=== PATIENT | male | born 1960 | race Caucasian/White ===

== ENCOUNTER 2023-03-16 20:55 | Emergency (ER) | payer OTHER, SELFPAY ==
[2023-03-16 20:56] VITALS: BP 104/70; PULSE 57; RESP 18; TEMP 36.5; O2SAT 97; BMI 33.9
--- NOTE | 2023-03-16 21:12 | CT_ITS ---
INDICATION: trauma EXAMINATION: CT CERVICAL SPINE - CT Spine Cervical W/O Contrast Injection TECHNIQUE: Helically acquired images were obtained of the cervical spine. 2D reformatted images were reviewed. A radiation dose optimization technique was used for this scan. IV Contrast dosage and agent: None. RADIATION DOSAGE (If Supplied By Facility): CTDIvol = ( 25.22 ) mGy, DLP = ( 518.06 ) mGycm COMPARISON: None. FINDINGS: ALIGNMENT: No subluxation. MINERALIZATION: Normal. VERTEBRAL BODIES: No fracture or acute abnormality. DISC SPACES: Disc space narrowing with osteophytes C5-C7. POSTERIOR ELEMENTS: Facet arthropathy at multiple levels. SPINAL CANAL: Maintained. PARASPINAL SOFT TISSUES: Unremarkable. OTHER: Fracture right posterior second rib. Hazy opacity in the right upper lung. CT/Spine Cervical without Contras IMPRESSION: No evidence of fracture or subluxation in cervical spine. Right posterior second rib fracture. Right upper lobe contusion versus atelectasis. CT chest was obtained and will be reported separately. Electronically Signed: Lindsey Snowden MD at 22:28 EDT ,
--- NOTE | 2023-03-16 21:12 | CT_ITS ---
INDICATION: trauma EXAMINATION: CT THORACIC SPINE - CT Spine Thoracic W/O Contrast Injection TECHNIQUE: Helically acquired images were obtained of the thoracic spine. 2D reformats were reviewed. A radiation dose optimization technique was used for this scan. IV Contrast dosage and agent: None. RADIATION DOSAGE (If Supplied By Facility): CTDIvol = ( 23.11 ) mGy, DLP = ( 960.32 ) mGycm COMPARISON: FINDINGS: ALIGNMENT: No subluxation. Mild curvature mid thoracic spine convex right. MINERALIZATION: Normal. VERTEBRAL BODIES: No fracture or acute abnormality. DISC SPACES: Unremarkable. POSTERIOR ELEMENTS: Unremarkable. SPINAL CANAL: Maintained. PARASPINAL SOFT TISSUES: Unremarkable. OTHER: Fracture posterior right second rib nondisplaced. Dependent opacities in the lungs likely atelectasis.. CT/Spine Thoracic without Contras IMPRESSION: No evidence of fracture or subluxation in the thoracic spine. Right posterior second rib fracture nondisplaced. CT chest reported separately. Electronically Signed: Lindsey Snowden MD at 22:32 EDT ,
--- NOTE | 2023-03-16 21:12 | CT_ITS ---
INDICATION: 10 feet fall from ladder EXAMINATION: CT BRAIN - CT Head or Brain W/O Contrast Injection TECHNIQUE: Multiple axial images were obtained of the head without intravenous contrast. A radiation dose optimization technique was used for this scan. IV Contrast dosage and agent: None. RADIATION DOSAGE (If Supplied By Facility): CTDIvol = ( 44.99 ) mGy, DLP = ( 846.73 ) mGycm COMPARISON: None. FINDINGS: BRAIN: No acute bleed. No edema. Allan-white matter differentiation is maintained. VENTRICLES AND SULCI: Not dilated. EXTRA-AXIAL: No hemorrhage, fluid collection, or mass. CALVARIUM / SKULL BASE: Unremarkable. FACE/SINUSES: Unremarkable. SOFT TISSUES: Unremarkable. CT/Brain/Head without Contrast IMPRESSION: No acute abnormality. Electronically Signed: Lindsey Snowden MD at 22:20 EDT ,
--- NOTE | 2023-03-16 21:12 | CT_ITS ---
INDICATION: trauma EXAMINATION: CT CHEST WITH CONTRAST - CT Chest W/ Contrast Injection TECHNIQUE: Helically acquired images were obtained of the chest following IV contrast. A radiation dose optimization technique was used for this scan. IV Contrast: IV 100mL [id number]-370 . RADIATION DOSAGE (If Supplied By Facility): CTDIvol = ( 18.86 ) mGy, DLP = ( 751.61 ) mGycm COMPARISON: FINDINGS: LUNGS: Small area of consolidation in the anterior right upper lobe, deep to the anterior first rib at sternal margin. Dependent atelectasis in both lungs. PLEURA: Tiny pneumothorax on the right, tiny focus of air anterior and another focus anterior/medial adjacent to the heart. Less likely tiny component of pneumomediastinum. No pleural effusion. MEDIASTINUM: Unremarkable. HEART: Not enlarged. AORTA: Normal caliber. No dissection. Margins are distinct. UPPER ABDOMEN: No acute abnormalities. BONES/SOFT TISSUES: Fracture of the right anterior first rib costal margin, without significant displacement. Overlying stranding parasternal. Fracture posterior right second rib nondisplaced.. OTHER: None. CT/Chest WITH Contrast IMPRESSION: 1. Acute nondisplaced right anterior first rib fracture at the costal margin. Right posterior second rib fracture. 2. Tiny right pneumothorax. Questionable tiny pneumomediastinum. 3. Right upper lobe pulmonary contusion. 4. No evidence of traumatic aortic injury.. Electronically Signed: Lindsey Snowden MD at 22:46 EDT ,
--- NOTE | 2023-03-16 21:18 | EDS_ITS ---
HPI HPI - Fall History of Present Illness Chief Complaint: Fall Detail of Chief Complaint: 10 feet fall from a ladder to the ground. Informant: patient and spouse/S.O. Occured/Mechanism Occurred: Today and Hours Usually ambulates: Without assistance Pain/Injury Pain Location: back and upper extremity Quality of Pain: Sharp and Stabbing Current Severity: Moderate Maximum Severity: Severe Associated Symptoms Associated Symptoms: Negative for Parasthesias, Weakness, Loss of function, Loss of consciousness or Amnesia Narrative Narrative: 62-year-old male no significant past medical or surgical history. He is on a ladder about 10 feet in the air trying to get rid of Squared[employer] nest. As he was trending down from the ladder he fell to the ground landing flat on his back complaining of pain to his right parathoracic back and right shoulder. No LOC. He did not hit his head. Denies any neck pain. No weakness or numbness to his extremities. Prior similar symptoms: No Recent Illness/Hospitalization: No PFSH PFSH Medical History no medical history no medical history Allergy/AdvReac Type Severity Reaction Status Date / Time No Known Allergies Allergy Verified 03/16/23 20:56 Surgical History Hx of adenoidectomy Hx of tonsillectomy Social History Smoking Status: Never smoker ROS ROS ED ROS Narrative Denies recent illness. Review of Systems ROS Unobtainable: Denies due to encephalopathy Constitutional Constitutional ED: Denies chills or fever(s) Eyes Eyes: Denies blurry vision ENT ENT ED: Denies ear pain or rhinorrhea Cardiovascular Cardiovascular: Denies chest pain or palpitations Respiratory/Chest Respiratory/Chest: Denies cough or dyspnea Gastrointestinal Gastrointestinal: Denies abdominal pain, constipation, diarrhea, melena, nausea or vomiting Genitourinary Genitourinary ED: Denies dysuria or hematuria Musculoskeletal Musculoskeletal: Reports back pain; Denies arthralgias, myalgias or neck pain Integumentary Denies abscess or Abrasions Neurologic Neurologic: Denies headache(s) Psychiatric Psychiatric: Denies anxiety Endocrine Endocrinology: Denies polydipsia or polyphagia Hematologic/Lymphatic Hematologic/Lymphatic: Denies easy bleeding, easy bruising or lymphadenopathy EXAM Physical Exam Narrative Exam Narrative: 62-year-old male on a backboard. No c-collar. Vital signs are stable and afebrile. He is awake alert. He is answering questions following commands. Family is present in the room. H EENT exam pupils round reactive light. No trauma to his face or tenderness. No trauma to his scalp head. No hematomas. C-spine nontender. Trachea midline. Lungs clear to auscultation bilaterally. Heart regular rhythm rate about 60 no murmur. Chest wall and ribs nontender. Abdomen soft nontender. No bruising. Pelvic girdle intact. Moving all 4 ex tremities. Neurovascular intact. Equal symmetrical 5 and 5 hand cigar maker strength. Dorsi plantarflexion intact. He is able to flex and extend both hips and knees. Normal range of motion of his left upper extremity. He has limited range of motion of his right shoulder due to pain. No gross bony deformity. Neurologically he is awake and alert. Answering questions following commands. GCS of 15. Const Vital Signs: 03/16/23 20:56 03/16/23 21:01 03/16/23 23:00 Temperature 97.7 F L Temperature Source Oral Pulse Rate 57 L 70 Respiratory Rate 18 16 Respiratory Effort Normal Non-Labored Respiratory Depth Normal Respiratory Pattern Normal Blood Pressure 104/70 136/70 H Blood Pressure Mean 81 92 Pulse Ox 97 99 Oxygen Delivery Method Room Air Room Air Room Air Positive well nourished and well developed; Negative for obese, cachectic, contractures or unkempt General Appearance ED: well developed; Negative for unkempt, cachectic, contractures or NAD Nutritional Appearance: Negative for cachectic or obese HEENT Reports normocephalic atraumatic; Negative for trauma, contusion, hematoma or tenderness Eyes PERRL and EOMs intact bilaterally General Eye ED: Negative for pale conjunctiva, scleral icterus or other Neck full ROM, no lymphadenopathy and supple General: Negative for tenderness Chest Wall inspection of chest normal and palpation of chest normal Chest: Negative for other Resp normal respiratory effort, no retractions and clear to auscultation bilaterally Effort and Inspection: Negative for pain with movement Auscultation: Negative for rales, rhonchi, wheezes or diminished lung sounds Cardio regular rate, regular rhythm, S1 normal heart sound, S2 normal heart sound and no murmurs Rate: Negative for bradycardia or tachycardic Rhythm: Negative for abnormal rhythm Bruits: Negative for other GI non-tender, non-distended and no masses Inspection: Negative for abdominal distention Auscultation: normoactive bowel sounds Palpation: soft; Negative for guarding or rebound tenderness present Back/Spine no CVA tenderness Back/Spine Narrative: Tenderness to the paraspinal muscles in the posterior ribs along the thoracic spine. No bruising. No ecchymosis. Also tenderness to the right shoulder and posterior shoulder blade area. No crepitance or subcu air. Large cervical spine actively nontender. General Back: Negative for CVA tenderness Cervical Spine: cervical spine tenderness Lumbar Spine / Lower Back: Negative for lumbar spinal tenderness Neuro oriented x3, CN's II-XII intact bilaterally, moves all extremities, no focal motor deficits and no sensory deficits noted Sensorium / Orientation: alert, oriented to person, oriented to place and oriented to time; Negative for orientation impaired, confused, lethargic or stuporous Motor Exam: strength 5/5 throughout; Negative for general weakness or strength abnormal Psych mental status grossly normal and thought process normal Appearance: Negative for unkempt Attitude: No agitated Mood & Affect: Negative for depressed, anxious or tearful Skin Lesions: no lesions Rashes: no rashes Trauma: Negative for abrasion MDM MDM MDM Narrative Medical decision making narrative: 62-year-old male fell about 10 feet from a ladder to the ground. No LOC. No neck pain. He is significant pain to his perithoracic soft tissue and posterior ribs to his thoracic spine. He of his head, C-spine chest and thoracic spine to be obtained. He is already been treated with fentanyl by the squad prior to arrival he did not waiting currently for pain. He has absolutely no abdominal trauma or pain. No anterior chest wall trauma or pain. I am also x-raying his right shoulder due to discomfort in the right shoulder blade and shoulder itself. There is no deformity. Patient is doing well at 10:02 PM. I went over his x-ray with him I think he has an AC joint separation. He is tender right over that point of his anterior shoulder. I have reviewed his CAT scans of his brain, C-spine, T-spine and chest. I am awaiting formal radiology interpretation. He will be treated with Dilaudid for his current pain. Zofran to prevent nausea. CAT scan is read by the radiologist and reviewed by me show first and second rib fractures posteriorly, small right pneumothorax, and a pulmonary contusion on the right. X-ray showed a right AC separation. CT of the brain and C-spine were unremarkable. CT of the thoracic spine was unremarkable. Patient is doing well at 11:10 PM. I discussed at length with both he and his family. He has received pain medication. I have already spoken [facility] though accept him in transfer. We are setting up transfer by ground ambulance. Currently he is awake and comfortable. His exam is benign change. His abdomen is totally benign. He is in no distress at this time. History & Record Review Discussion w/independent historian: Patient and Family Radiography Diagnostic Testing: Clinical Impression(s) from Imaging Studies Brain CT 03/16/23 21:12 IMPRESSION: No acute abnormality. Electronically Signed: Lindsey Snowden MD at 22:20 EDT Reading Location ID and State: [employer] / [place] Tel , Service support , Cervical Spine CT 03/16/23 21:12 IMPRESSION: No evidence of fracture or subluxation in cervical spine. Right posterior second rib fracture. Right upper lobe contusion versus atelectasis. CT chest was obtained and will be reported separately. Electronically Signed: Lindsey Snowden MD at 22:28 EDT Reading Location ID and State: [id number] / [place] Tel , Service support , Chest CT 03/16/23 21:12 IMPRESSION: 1. Acute nondisplaced right anterior first rib fracture at the costal margin. Right posterior second rib fracture. 2. Tiny right pneumothorax. Questionable tiny pneumomediastinum. 3. Right upper lobe pulmonary contusion. 4. No evidence of traumatic aortic injury.. Electronically Signed: Lindsey Snowden MD at 22:46 EDT , ADDENDUM: 03/16/23 [id number] IMPRESSION: undefined Thoracic Spine CT 03/16/23 21:12 IMPRESSION: No evidence of fracture or subluxation in the thoracic spine. Right posterior second rib fracture nondisplaced. CT chest reported separately. Electronically Signed: Lindsey Snowden MD at 22:32 EDT , Shoulder X-Ray 03/16/23 21:40 IMPRESSION: AC separation/dislocation. Electronically Signed: Lindsey Snowden MD at 22:51 EDT , Right shoulder x-ray, shows an AC separation. No fracture or dislocation. Critical Care Time Critical Care Time: Yes Critical care time (excluding procedures): 30-74 minutes, Including time spent:, Discussing w/Patient &/or Family/Bullion Weigher, Discussing w/Consultants, Arranging Admission or Transfer, Performing Direct Patient Care at Bedside and - (33 minutes.) Discharge Plan Triage Chief Complaint: Fall ED Provider: Feliciano Venegas Dx/Rx/DC Orders Clinical Impression: Separation of right acromioclavicular joint, Closed rib fracture, Contusion of lung, Fall from height of greater than 3 feet, Pneumothorax on right Primary Care Provider: Care Physician,No Primary Referrals: Care Physician,No Primary [Primary Care Provider] - Disposition Disposition: Acute Care Hospital
--- NOTE | 2023-03-16 21:40 | RAD_ITS ---
INDICATION: trauma EXAMINATION/TECHNIQUE: X-RAY - RIGHT XR Shoulder Min 2 Views 2 VIEWS COMPARISON: FINDINGS: BONES: No fracture demonstrated. Posterior second rib fracture not well-visualized, better seen on CT chest/spine. JOINTS: Distal clavicle displaced cephalad in relation to the acromion. No significant widening. No dislocation at the glenohumeral joint. SOFT TISSUES: Unremarkable. RAD/Shoulder min 2 Views IMPRESSION: AC separation/dislocation. Electronically Signed: Lindsey Snowden MD at 22:51 EDT ,
[2023-03-16] MEDS: HYDROmorphone 1 MG/ML Syringe IV (22:06)
[2023-03-16] MEDS: Ondansetron 4 MG/2 ML Vial IV (22:07)
[2023-03-16 23:00] VITALS: BP 136/70; PULSE 69; PULSE 70; RESP 16; RESP 18; O2SAT 95; O2SAT 99
[2023-03-17] VITALS: BP 116/64; PULSE 69; RESP 17
[2023-03-17 01:00] VITALS: BP 102/56; PULSE 72; RESP 16; O2SAT 92
[2023-03-17] MEDS: HYDROmorphone 1 MG/ML Syringe IV (01:56)
== END 2023-03-17 02:06 | disposition short-term general hospital (02) ==
PROVIDERS: Emergency Provider Emergency Medicine; Visit Provider Emergency Medicine
DX: S43.101A Unspecified dislocation of right acromioclavicular joint, initial encounter (principal); W11.XXXA Fall on and from ladder, initial encounter; Y93.89 Activity, other specified; S22.41XA Multiple fractures of ribs, right side, initial encounter for closed fracture; S27.321A Contusion of lung, unilateral, initial encounter; J93.9 Pneumothorax, unspecified
CPT/HCPCS: 70450; 71260; 72125; 72128; 73030; 96374; 96375; 96376; 99285; Q9967; J2405

== ENCOUNTER 2023-05-03 13:30 | Outpatient (RCR) | payer OTHER, SELFPAY ==
--- NOTE | 2023-04-05 14:12 | HP.PTEVAL_ITS ---
Patient's Visit Information Visit Information Visit Information: JENNY KELLY is a 62 year old M referred to Physical Therapy by TREY HEATH with a diagnosis of SEPERATION OF RIGHT ACROMIOCLAVICULAR JOINT. Date of Evaluation: 04/05/23 Physical Therapist: Francisco Mcmahan, PT, Cert MDT, OCS Visit Plan Frequency: 2x /Week Duration: 4 Weeks Plan: PROM FE 140 DEGREES/ER 40 DEGREES ,GRADUAL PROGRESSION RTC THERBAMD STRENGTHENING PT INTERVTIONS PROM/AAROM/AROM ,RTC/SCAPULAR STRENGTHNEING AND MANUAL THERAPY Subjective Subjective: This 62 y/o male presents to physical therapy with right separation AC joint .n Patient injury to shoulder on 03/16/23 fell from ladder . Patient went to ER at [facility] did x-rays shoulder ,CATSAN brain, pelvis and multiple diagnostics. Found to have separations AC joint and fracture ribs 1-2 . Patient had some lung damage and was transferred to [facility] . Patient was in hospital until 04/17/23 with sling as needed. Patient seen ortho in hospital then f/u Dr Heath recommended PT PROM 140 ,ER 40 and gradual progressive RTC strengthening and no restriction for home. Patient has AC elevation ,patient taking no medication. Patient has min pain . Patient sleeping good. Denies paresthesia/tingling . Patient has no appointment with . Patient condition affect QOL and function/housework tasks. Patient goals to have pain. SOCIAL: VOCATION: [employer] Pain Left: Pain Intensity (Out of 10): 3 Pain Intensity Range: 10 Objective Objective: POSTURE: mild elevation AC ,rounded shoulders head forward PALAPTION: AC NEURO: denies paresthesia/tingling , AROM: shoulder flexion 120 degrees ,abduction 120 degrees ,ER 40 degrees ,IR S1 MMT: deltoid NT ,( peak force) infraspinatus 10.8 ,subscapularis 12.3 ,supraspinatus 10.8 PROM: flexion 140 degrees , ER 40 degrees could go further no pain Balance/Special Test Scores Quick DASH Score: 50.0000 Goals Goal 1:: I with HEP for shoulder Goal Time Frame: 4-6 Weeks Goal 2:: Patient to improve AROM shoulder flexion /abduction 150 degrees and ER 90 and reach behind back L1 Goal Time Frame: 4-6 Weeks Goal 3:: Patient to improve peak force RTC by 10-15 # to improve function and [place] tasks Goal Time Frame: 4-6 Weeks Goal 4:: Patient to demonstrate 50% improvement with ADLS and housework/yardwork tasks with min limiations Goal Time Frame: 4-6 Weeks Goal 5:: Patient to be improve quick dash by 5-10 points to improve QOL and function. Goal Time Frame: 4-6 Weeks Rehabilitation Potential Physical Therapy Diagnosis: This patient fell from ladder sustained separation of AC and fx ribs with decrease AROM , decrease strength impairs ADLS and housework tasks thus benefit from skilled PT Rehabilitation Potential: Good Anticipated Interventions Patient/Client Instruction: Educate patient on: Condition and Plan of Care For the Purpose of:: To decrease pain, To increase ROM, To improve muscle performance and motor function, To improve ability to perform ADL's, To increase tolerance to activity/condition/position, To improve ability of physical actions for home/community/work/leisure, To improve health of tissue, To decrease soft tissue restriction, To increase flexibility/ROM, To prevent re-injury and To improve tolerance to ADL's Therapeutic Exercise to Include: Strength training, Postural training, Flexibilty training, Passive ROM and Active ROM For the Purpose of:: To decrease pain, To increase ROM, To improve muscle performance and motor function, To increase tolerance to activity/condition/position, To improve ability of physical actions for home/community/work/leisure, To improve health of tissue, To decrease soft tissue restriction and To improve tolerance to ADL's Manual Therapy Techniques to Include: Passive ROM For the Purpose of:: To increase ROM, To improve nutrient delivery to tissue, To increase oxygenation perfusion and To improve health of tissue Cryotherapy (ice pack, ice massage): Yes Thermo therapy (hot pack): Yes For the Purpose of:: To decrease swelling/inflammation, To improve nutrient delivery to tissue and To increase oxygenation perfusion Text: Thank you for the opportunity to evaluate your patient. For Medicare and Medicare HMO plans, please review the plan of care and approve it. It will need to be FAXED BACK to us at [phone] for Medicare purposes. For Medicare only, by signing this I certify the plan of care. Please let me know if there are questions or concerns regarding this plan of care. Physician Signature: Date:
--- NOTE | 2023-10-04 12:28 | HP.PTDCSUM ---
Discharge Summary D/C summary: It has been my pleasure to treat JENNY KELLY referred by TREY ROBLES, with the diagnosis of SEPERATION OF RIGHT ACROMIOCLAVICULAR JOINT for a total of 8 visit(s). Discharge Date: Please see the following information for a summary of their discharge status. Subjective Subjective: Doing well enough for d/c to home Pain Left: Pain Intensity (Out of 10): 1 Overall Improvement % Improvement: 60 Objective Objective/Function: AROM SHOULDER FLEXION 160 DEGREES ,ABDUCTION 160 DEGREES MMT: RTC 4/5 ,DDELTOID 4-/5 Goals Goal 1:: I with HEP for shoulder Goal 2:: Patient to improve AROM shoulder flexion /abduction 150 degrees and ER 90 and reach behind back L1 Goal 3:: Patient to improve peak force RTC by 10-15 # to improve function and [place] tasks Goal 4:: Patient to demonstrate 50% improvement with ADLS and housework/yardwork tasks with min limiations Goal 5:: Patient to be improve quick dash by 5-10 points to improve QOL and function. Plan Plan: D/C TO HEP D/C Information d/c sentence: If there are questions or concerns regarding this patient's physical therapy, please feel free to call me at [phone]. Thank you for the referral of this patient. Sincerely, Francisco Mcmahan, PT, Cert MDT, OCS Balance/Gait/Functional tests Balance/Special Test Scores Quick DASH Score: 50.0000 Improvement % Improvement: 60
== END 2023-05-03 19:00 | disposition home or self-care (01) ==
LOC: PT 13:30
DX: S43.101D Unspecified dislocation of right acromioclavicular joint, subsequent encounter (principal)
CPT/HCPCS: 97110; 97162